=== PATIENT | male | born 2000 | race Caucasian/White ===

== ENCOUNTER 2022-06-17 09:07 | Emergency (ER) | payer OTHER ==
[2022-06-17 09:33] VITALS: BP 132/72; PULSE 75; RESP 18; TEMP 98.6; BMI 31.5
[2022-06-17] MEDS ORDERED: KETOROLAC TROMETHAMINE 30 MG/1 ML VIAL IM ONE (11:43)
[2022-06-17] MEDS ORDERED: KETOROLAC TROMETHAMINE 30 MG/1 ML VIAL ONE (12:58)
== END 2022-06-17 13:37 | disposition home or self-care (01) ==
LOC: JER 09:07
PROC: 3E023GC Introduction of Other Therapeutic Substance into Muscle, Percutaneous Approach (ICD-10-PCS; principal; 2022-06-17)
DX: S96.912A Strain of unspecified muscle and tendon at ankle and foot level, left foot, initial encounter (principal); Y99.8 Other external cause status
CPT/HCPCS: 73610-TC-LT-FY; 99284-25

== ENCOUNTER 2023-12-01 17:47 | Emergency (ER) | payer OTHER ==
[2023-12-01 17:52] VITALS: BP 118/68; PULSE 76; RESP 18; TEMP 98.3; BMI 34.4
[2023-12-01] MEDS ORDERED: IBUPROFEN 600 MG TABLET (FP) PO ONE (18:16)
[2023-12-01] MEDS: IBUPROFEN 600 MG TABLET (FP) PO ONE (18:20)
== END 2023-12-01 18:51 | disposition home or self-care (01) ==
LOC: JERFT 17:47
DX: S60.042A Contusion of left ring finger without damage to nail, initial encounter (principal); M79.645 Pain in left finger(s); W18.39XA Other fall on same level, initial encounter; X50.9XXA Other and unspecified overexertion or strenuous movements or postures, initial encounter
CPT/HCPCS: 73140-TC-LT-FY; 99283-25